=== PATIENT | female | born 1970 | race Caucasian/White ===

== ENCOUNTER 2016-12-27 15:44 | Emergency (ER) | payer MEDICAID ==
[~2016-12-27] VITALS: Ht 160 cm; Wt 46.0 kg
[~2016-12-27 15:44] MED LIST: AMIT50TA PO; CITA40TA12 PO; CLON0.5T PO; GENT5DRO30 EACHEYE; IBUP-1223 PO; IRON PO; LEVO25TA4 PO; LEVO500T47 PO; LORA-446 PO; MIRT15TA4 PO; MULTIVIT PO; ONDA4TAB10 PO; PANT40TA3 PO; POTA20TA14 PO; TRAM50TA2 PO; ZOLP10TA PO; [UNRECOGNIZED DRUG - CODE] PO
[2016-12-27] MEDS ORDERED: IBUPROFEN 200 MG TABLET ONE (17:49)
[2016-12-27 17:55] VITALS: BP 108/73
[2016-12-27] MEDS ORDERED: IBUPROFEN 200 MG TABLET PO ONE (18:00)
== END 2016-12-27 19:17 | disposition home or self-care (01) ==
LOC: ED 19:08
DX: S16.1XXA Strain of muscle, fascia and tendon at neck level, initial encounter (principal); M54.5 Low back pain; I10 Essential (primary) hypertension; E03.9 Hypothyroidism, unspecified; E78.5 Hyperlipidemia, unspecified; Z88.0 Allergy status to penicillin; Z88.8 Allergy status to other drugs, medicaments and biological substances; Y04.8XXA Assault by other bodily force, initial encounter; Y93.89 Activity, other specified; Y92.098 Other place in other non-institutional residence as the place of occurrence of the external cause; Y99.8 Other external cause status
CPT/HCPCS: 72050; 72110; 99284

== ENCOUNTER 2017-02-10 20:55 | Emergency (ER) | payer MEDICAID ==
[~2017-02-10] VITALS: Ht 157.5 cm; Wt 53.4 kg
[2017-02-10 22:12] VITALS: BP 109/68
== END 2017-02-10 22:15 | disposition home or self-care (01) ==
LOC: ED 22:09
DX: F10.120 Alcohol abuse with intoxication, uncomplicated (principal); Z00.01 Encounter for general adult medical examination with abnormal findings; I10 Essential (primary) hypertension; Z88.0 Allergy status to penicillin
CPT/HCPCS: 99283